=== PATIENT | female | born 1970 | race Caucasian/White ===

== ENCOUNTER 2019-08-27 06:14 | Day surgery (SDC) | payer BC ==
[2019-08-26 14:31] VITALS: BMI 27.4
[~2019-08-27 06:14] MED LIST: PHENAZOPYRIDINE HCL 100 MG TABLET (FP) PO ONE
[2019-08-27] MEDS ORDERED: PHENAZOPYRIDINE HCL 100 MG TABLET (FP) ONE (06:55)
[2019-08-27] MEDS ORDERED: PHENAZOPYRIDINE HCL 100 MG TABLET (FP) PO ONE (07:00)
[2019-08-27] MEDS ORDERED: CEFAZOLIN 1 GM in DEXTROSE 5%-WATER - 50 ML IVPB ONE (07:30)
[2019-08-27] MEDS ORDERED: VASOPRESSIN 20 UNITS/ML VIAL IV ONE (07:31)
[2019-08-27] MEDS ORDERED: CEFAZOLIN 2 GM in DEXTROSE 5%-WATER - 50 ML IVPB ONE ×2 (07:31→07:35)
[2019-08-27] MEDS ORDERED: ROCURONIUM BROMIDE 50 MG/5 ML SYRINGE ONE ×2 (07:33→10:16)
[2019-08-27] MEDS ORDERED: MIDAZOLAM HCL 2 MG/2 ML SINGLE DOSE VIAL ONE ×3 (07:34)
[2019-08-27] MEDS ORDERED: PROPOFOL 20 ML ONE ×2 (07:34→09:45)
[2019-08-27] MEDS ORDERED: ceFAZolin SODIUM 1 GM VIAL ONE ×2 (07:38→08:47)
[2019-08-27] MEDS ORDERED: DESFLURANE GAS 240 ML BOTTLE IH ONE (07:48)
--- NOTE | 2019-08-27 08:03 | HP ---
History & Physical Update - History History: No Change - Physical Physical: No Change - Assessment Assessment: No Change - Plan Plan: No Change (no changes in health since visit with Dr Shetty on 08/25/19)
[2019-08-27] MEDS ORDERED: ceFAZolin SODIUM 1 GM VIAL IVPB ONE (08:45)
[2019-08-27] MEDS ORDERED: DEXAMETHASONE SOD PHOSPHATE 4 MG/1 ML VIAL ONE (08:55)
[2019-08-27] MEDS ORDERED: BUPIVACAINE HCL/PF 0.5% (5 MG/ML) 30 ML VIAL IJ ONE ×2 (09:08)
[2019-08-27] MEDS ORDERED: KETOROLAC TROMETHAMINE 30 MG/1 ML VIAL ONE (11:05)
[2019-08-27] MEDS ORDERED: BACITRACIN 15 GM TUBE TOPICAL OINTMENT ONE (11:30)
--- NOTE | 2019-08-27 11:34 | OP ---
Operative Note - Note: Operative Date: 08/27/19 Pre-Operative Diagnosis: Large uterus w myomata. Pelvic pain. LUNA Post-Operative Diagnosis: Other (Same + extensive adhesions. Enterocele.) Surgeon: Maximilian Shetty Anesthesia: General Estimated Blood Loss (mls): 50 Operative Report Dictated: Yes
[2019-08-27] MEDS ORDERED: KETOROLAC TROMETHAMINE 30 MG/1 ML VIAL IVPUSH PRN (11:44)
[2019-08-27] MEDS ORDERED: SIMETHICONE 80 MG TAB.CHEW (FP) PO PRN (11:44)
[2019-08-27] MEDS ORDERED: ACETAMINOPHEN 1000 MG/100 ML VIAL (NON FORMULARY) IVPB PRN (11:44)
[2019-08-27] MEDS ORDERED: IBUPROFEN 800 MG/8 ML IJ IVPB PRN (11:44)
[2019-08-27] MEDS ORDERED: ONDANSETRON 4 MG/2 ML VIAL IVPUSH PRN (11:44)
[2019-08-27] MEDS ORDERED: ACETAMINOPHEN 325 MG TABLET (FP) PO PRN (11:44)
[2019-08-27] MEDS ORDERED: oxyCODONE HCL 5 MG TABLET PO PRN ×2 (11:44→11:59)
[2019-08-27] MEDS ORDERED: BISACODYL 5 MG TABLET.DR (FP) PO PRN (11:44)
[2019-08-27] MEDS ORDERED: DOCUSATE SODIUM 100 MG CAPSULE (FP) PO PRN (11:44)
[2019-08-27] MEDS ORDERED: LACTATED RINGERS SOLUTION 1,000 ML/1,000 ML INFUS.BAG IV SCH (11:45)
--- NOTE | 2019-08-27 12:07 | SURG ---
Surgery Hogshead Liner Note Hogshead Liner: Mihaela Velez PA-C Date of Service: 08/27/19 Diagnosis: Large uterus w myomata. Pelvic pain. LUNA Procedure: Robotic laparoscopic hysterectomy with b/l salpingectomy. I was present for the entirety of the operative procedure. For further detail, please refer to operative report. Visit type - Case Type Case Type: Scheduled - Emergency Emergency Visit: No - New patient This patient is new to me today: Yes Date on this admission: 08/27/19
[2019-08-27] MEDS ORDERED: ACETAMINOPHEN INJECTION 100 ML IVPB ONE (12:32)
[2019-08-27] MEDS ORDERED: LACTATED RINGERS SOLUTION 1,000 ML IV SCH (12:45)
[2019-08-27] MEDS ORDERED: ACETAMINOPHEN 1000 MG/100 ML VIAL (NON FORMULARY) IVPB SCH (12:45)
[2019-08-27] MEDS ORDERED: CEFAZOLIN 1 GM/D5W 1 GM/50 ML BAG IVPB SCH (18:00)
--- NOTE | 2019-08-27 18:29 | PN ---
Progress Note (short form) - Note Progress Note: PO#0 VSS. Feels well, OOB. Wants to go home. Morejon to be removed. Tolerates diet. Surgery explained. Instructions given. OK to discharge.
[2019-08-27 18:46] VITALS: BP 118/67; PULSE 67; TEMP 98.4
--- NOTE | 2019-08-28 08:53 | OP ---
DATE OF OPERATION: DATE OF DICTATION: 08/27/2019 PREOPERATIVE DIAGNOSIS: 1. Large, growing, symptomatic uterine leiomyomata. 2. Pelvic pain. 3. Dysfunctional uterine bleeding. ADDITIONAL DIAGNOSIS: Stress urinary incontinence. POSTOPERATIVE DIAGNOSIS: 1. Large, growing, symptomatic uterine leiomyomata. 2. Pelvic pain. 3. Dysfunctional uterine bleeding. 4. Stress urinary incontinence. 5. Extensive adhesions. 6. Enterocele, pronounced. OPERATION: 1. Robotic total hysterectomy with bilateral salpingectomy. 2. Lysis of extensive adhesions. 3. Excision of enterocele with Krishnamurthy/Waldron vault suspension. ADDITIONAL SURGERY: Transobturator tension-free tape. SURGEON: David Bender MD. ANESTHESIOLOGIST: Mary London MD. ANESTHESIA: General. PROCEDURE AND FINDINGS: The patient was placed under general anesthesia in the robotic room in dorsal lithotomy position. Vulvovaginal prep and drape were done. Examination under anesthesia was carried out and uterus felt to be about 14 weeks' size. Adnexa were not palpable. Morejon catheter was inserted. Cervix was grasped with tenaculum and dilated. Endometrial cavity was entered with difficulty because of previous ablation. Small vaginal manipulator was introduced. Patient was prepped and draped for laparoscopy. Abdomen was entered through umbilicus with Veress needle and insufflated with 4 L of carbon dioxide. Intraumbilical vertical incision was placed to accommodate 8-mm trocar. Da Thompson trocar was introduced and laparoscope was placed in the abdomen. Under direct vision, 2 additional 8-mm trocars were placed at the same level laterally on the left and right sides. AirSeal 5-mm port was placed in the left midclavicular line slightly above the umbilicus. Pelvis and abdomen were inspected. Uterus was enlarged and multiple myomas were noted. Right side was obstructed by loop of large intestine that was adhered to the right side and right part of the fundus of the uterus. Adhesions were somewhat stretched, and there was a fair amount of clear tissue that was seen between the uterus and large bowel. Loop of small bowel was adhered directly to the posterior uterine wall on the left side. There was no clear space in between. Decision was made to devascularize the uterus, to do deep excision and then leave some of the uterine muscles on the bowel instead of the opposite. Robot was then placed at the site and docked. Fenestrated bipolar device was placed in port number 1. Vessel sealer in port number 3. The AirSeal port was used alternating suction and retraction. Right-sided adhesions were lysed using minimal amount of power. There was no bleeding. Several layers of adhesions were noted, but eventually bowel was freed and anatomy was essentially restored. At that point, right-sided round ligament which was very thick and large was divided. Anterior leaf of broad ligament was incised. A bladder flap was incised as well. Posteriorly, adnexa were examined and right ovary was noted to be within normal limits. It was preserved according to patient's wishes. Tube was dissected using vessel sealer and interrupting at the mesosalpinx and removed from the abdomen. Uteroovarian ligament was divided. Posterior leaf of broad ligament was divided. Right-sided pelvic wall was dissected, and ureter was identified. Uterine vessels were isolated, skeletonized, and coagulated and divided with the vessel sealer. Bladder was taken almost completely off the cervix down below the rim of VCare device. Attention was then turned to the left side. Round ligament and uteroovarian ligament were divided. Anterior leaf of broad ligament was incised, connected with the bladder flap and left side bladder was also taken off the cervix. Fallopian tube was dissected and removed. Uterine vessels were reached, skeletonized, coagulated, and divided. Uterus became quite avascular. Cardinal ligaments were partially divided and conditions were ready for entry into the vagina. At that point, small ligament loop of bowel was excised from the uterus leaving about 5-mm thickness of myometrium on the bowel. Intestine was intact. There was no bleeding on either side since blood supply to the uterus was essentially stopped. Vessel sealer was by that time replaced with da Thompson monopolar scissors. Vaginal vault was entered anteriorly and incision was carried out alongside the rim of VCare device. In the process, uterosacral ligaments were encountered, coagulated, and divided. Uterus was excised completely, and then retrieved transvaginally using tenaculum with some difficulty due to its size. Vagina was packed with gauze to avoid constant escape of the carbon dioxide. At that point, large and bulging enterocele was noted. It was excised in near triangular fashion, and specimen was sent for the pathology as well. Da Thompson scissors were then replaced with isidro lifter/driver and 2-0 Vlock suture was entered into the abdomen. Right angle was secured, and two-thirds of the vaginal vault were closed, suspending the vault mostly on uteroovarian ligament stumps. Suspension was both effective in its main goal and hemostatic. Second suture was then used and left vaginal angle was secured in similar fashion. Vaginal vault was closed with continuous running suture and both stitches overlapped. Sutures were tied together at the posterior aspect of the vagina. Pelvis was thoroughly lavaged. There was no bleeding whatsoever. Surgicel was placed in the pelvis on the top of vaginal vault to add extra security. At that point, gynecological part of the surgery was completed. Instruments were withdrawn together with the port, and gas was allowed to escape from the abdomen. All 4 incisions were closed with subcuticular Biosyn 4-0 and Dermabond. Total blood loss for the SLITTING [employer] SHIPPING SUPERVISOR part of the procedure was 50 mL. Patient was kept in the same position and surgery was turned over to Dr. Bender, who will dictate a separate report. VIVIANA ANN MD [id number] MTDD
[2019-08-28] MEDS ORDERED: CYANOCOBALAMIN (VITAMIN B-12) 100 MCG TABLET PO SCH (10:00)
[2019-08-28] MEDS ORDERED: ENOXAPARIN NA (PORCINE) 40 MG/0.4 ML DISP.SYRIN SQ SCH (10:00)
--- NOTE | 2019-08-28 12:30 | OP ---
DATE OF OPERATION: 08/27/2019 PREOPERATIVE DIAGNOSIS: Stress urinary incontinence, hypermobile urethra. POSTOPERATIVE DIAGNOSIS: Stress urinary incontinence, hypermobile urethra. PROCEDURE: Suburethral sling placement and cystoscopy. SURGEON: David Bender MD ESTIMATED BLOOD LOSS: 25 mL. DRAINS: Morejon catheter. Please note this is the second part of a procedure first done by Dr. Shetty who performed a robotic hysterectomy. PREOPERATIVE INDICATIONS: Patient is a 48-year-old female who had severe stress urinary incontinence. On Valsalva during exam, she has significant leakage of with a hypermobile urethra. These findings were confirmed on urodynamics. DESCRIPTION OF PROCEDURE: After the patient underwent her robotic hysterectomy, my procedure was then done. A Morejon catheter was already in place. The middle portion of the urethra was marked out with a marking pen, and Pitocin was injected underneath the vaginal mucosa. An incision was then made in the midline over the urethra along the middle 1/3 of the urethra. The vaginal mucosa was then sharply dissected off the periurethral tissues in a lateral fashion in direction towards the obturator canal. The bladder was emptied. A trocar was placed into the right side of the mini sling that was used. The Altis sling was then placed under fingertip control through the vaginal incision toward the obturator canal. This was also then done on the left side. Cystoscopy was performed. Bilateral efflux was seen at the UOs. No puncturing or injury to the bladder were seen. The bladder, otherwise, appeared to be unremarkable. A stress test was performed on the bladder, and the sling was then tightened using a tightening suture until no leakage occurred. The sling laid flat on the midportion of the urethra without tension. The tensioning suture was then removed. The vaginal mucosa was then closed in a running fashion with 2-0 Vicryl suture. Good hemostasis was maintained. Vaginal packing was placed, and the Morejon was left in place as well. DAVID BENDER M.D. [id number]
--- NOTE | 2019-08-29 15:42 | PATH ---
Surgical Pathology Report Patient Name: CATHERINE LORA [facility]. Rec. #: [id number] /Age/Gender: 1970 (Age: 48) / F Account: [id number] Location: AMBULATORY SURG Taken: 08/27/2019 Received: 08/27/2019 Reported: 08/29/2019 Physicians: Maximilian Shetty MD Specimen(s) Received A: RIGHT FALLOPIAN TUBE B: LEFT FALLOPIAN TUBE C: UTERUS AND CERVIX D: ENTEROCELE EXCISION Clinical History Pelvic pain, leiomyoma of uterus Final Diagnosis A. FALLOPIAN TUBE, RIGHT, SALPINGECTOMY: FALLOPIAN TUBE WITH PARATUBAL CYST (INCLUDING FIMBRIATED END AND FULL LUMINAL PORTION). B. FALLOPIAN TUBE, LEFT, SALPINGECTOMY: FALLOPIAN TUBE WITH ENDOSALPINGOSIS (INCLUDING FIMBRIATED END AND FULL LUMINAL PORTION). C. UTERUS AND CERVIX, ROBOTIC LAPAROSCOPIC TOTAL HYSTERECTOMY: 186 G UTERUS. LEIOMYOMA(TA), INTRAMURAL AND SUBSEROSAL. SECRETORY ENDOMETRIUM. CERVIX WITHOUT SIGNIFICANT PATHOLOGIC FINDINGS. D.ENTEROCELE, EXCISION: SQUAMOUS MUCOSA WITHOUT SIGNIFICANT PATHOLOGIC FINDINGS. NO INTESTINAL MUCOSA IDENTIFIED. Electronically Signed Akanksha Jnug M.D. Gross Description A. Received in formalin labeled "right fallopian tube," is a 5 cm in length fimbriated fallopian tube. The outer surface is hoffman purple and smooth. Sectioning reveals an unremarkable lumen. Panel Laminator sections are submitted in 2 cassettes as follows: 1-fimbria; 2-cross sections of fallopian tube. B. Received in formalin labeled "left fallopian tube," is a 2.8 cm in length portion of fallopian tube. The fimbria are separately received within the same container. The outer surface of the fallopian tube is hoffman purple and smooth. Sectioning reveals an unremarkable lumen. Panel Laminator sections are submitted in 2 cassettes as follows: 1-fimbria; 2-cross sections of fallopian tube. C. Received in formalin labeled "uterus and cervix," is a 186 g uterus with an attached cervix and no attached adnexa. The specimen measures 9 cm from superior to inferior, 6.5 cm from left to right and 6.0 cm from anterior to posterior. The serosa is jc-hoffman with a focal bulging subserosal nodule. The attached cervix measures 3.2 cm in length and averages 3.3 cm in diameter. The ectocervix is jc, smooth and glistening. The endocervix is unremarkable. The endometrial cavity measures 4.4 cm in length and 1.5 cm from cornu to cornu. The endometrium is red brown and averages 0.1 cm in thickness. The myometrium displays multiple intramural nodules, measuring up to 1.6 cm in greatest dimension. The cut surface of the subserosal and intramural nodules is jc and rubbery with whorled architecture. No areas of hemorrhage or necrosis are identified. The remaining myometrium is jc-pink and averages 2.9 cm in thickness. Panel Laminator sections are submitted in 9 cassettes as follows: 1-anterior cervix; 2-posterior cervix; 6-9-iupnacke endomyometrium; 6-2-jyqnwweav endomyometrium; 7-subserosal nodule; 5-8-crmunhxiwy nodules. D. Received in formalin labeled "enterocele excision," is a 1.8 x 0.7 x 0.4 cm jc-hoffman, irregular portion of soft tissue. The specimen is trisected and entirely submitted in one cassette. 08/28/2019 [facility]08/28/2019
== END 2019-08-27 19:44 | disposition home or self-care (01) ==
LOC: JASUSAT 06:14 → JASU-SURG 06:14 → J6S 14:05 → JSAMEDAYSX 14:13 → J6S 14:17 → JASUSAT 19:44
PROVIDERS: ATTEND Specialist
PROC: 8E0W4CZ Robotic Assisted Procedure of Trunk Region, Percutaneous Endoscopic Approach (ICD-10-PCS; 2019-08-27)
PROC: 0UQF4ZZ Repair Cul-de-sac, Percutaneous Endoscopic Approach (ICD-10-PCS; 2019-08-27)
PROC: 0TSD0ZZ Reposition Urethra, Open Approach (ICD-10-PCS; principal; 2019-08-27 08:00)
PROC: 0UT9FZZ Resection of Uterus, Via Natural or Artificial Opening With Percutaneous Endoscopic Assistance (ICD-10-PCS; 2019-08-27 08:00)
PROC: 0UT7FZZ Resection of Bilateral Fallopian Tubes, Via Natural or Artificial Opening With Percutaneous Endoscopic Assistance (ICD-10-PCS; 2019-08-27 08:00)
DX: D25.1 Intramural leiomyoma of uterus (principal); D25.2 Subserosal leiomyoma of uterus; N39.3 Stress incontinence (female) (male); N36.41 Hypermobility of urethra; N93.9 Abnormal uterine and vaginal bleeding, unspecified; N81.5 Vaginal enterocele; N73.6 Female pelvic peritoneal adhesions (postinfective)
CPT/HCPCS: 57288; 58552; C1781; S2900; 36415; 84703; 86850; 86900; 86901; 88302-TC; 88304-TC; 88307-TC; 94010; 94760; J0131